=== PATIENT | female | born 1945 | race Caucasian/White ===

== ENCOUNTER 2016-08-05 11:02 | Day surgery (SDC) | payer MEDICARE ==
[2016-08-05] VITALS (10 sets, daily range): BP systolic 100–127; BP diastolic 55–829; PULSE 46–72; TEMP 98.1
[~2016-08-05] VITALS: Ht 162.7 cm; Wt 120.0 kg
[2016-08-05 12:20] LABS: HEMATOCRIT 34.7 % (37.0-47.0); HEMOGLOBIN 10.9 g/dl (12.5-16.0); MEAN CELL VOLUME 84 fl (80.0-100.0); MEAN CORPUSCULAR HEMOGLOBIN 26 pg (27.0-31.0); MEAN CORPUSCULAR HGB CONC 31 g/dl (33.0-37.0); MEAN PLATELET VOLUME 9.2 fl (7.4-10.4); PLATELET COUNT 187 K/mm3 (130-400); RED BLOOD COUNT 4.15 M/mm3 (4.10-5.30); REDCELL DISTRIBUTION WIDTH-CV 16.1 % (11.5-14.5); WHITE BLOOD COUNT 3.9 K/mm3 (4.8-10.8)
[2016-08-05] MEDS ORDERED: ZOCOR 20MG20 MG PO (12:23)
[2016-08-05 12:24] LABS: INR 1.1 (0.8-3.0); PROTHROMBIN TIME 12.5 SECONDS (9.7-12.8)
[2016-08-05] MEDS ORDERED: SYNTHROID0.05 MG/TA PO (12:24)
[2016-08-05] MEDS ORDERED: DITROPAN XL 5MG5 M1 PO (12:24)
[2016-08-05] MEDS ORDERED: NORVASC 5MG5 MG/TAB PO (12:24)
[2016-08-05] MEDS ORDERED: FOSAMAX 70MG TA70 MG PO (12:25)
[2016-08-05] MEDS ORDERED: LASIX 20MG TABL20 MG PO (12:26)
[2016-08-05] MEDS ORDERED: K-DUR 10 MEQ T10 MEQ PO (12:26)
[2016-08-05] MEDS ORDERED: VASOTEC 5MG5 MG/TAB PO (12:32)
[2016-08-05] MEDS ORDERED: COREG 3.123.125 MG/T PO (12:32)
[2016-08-05] MEDS ORDERED: VENTOLIN0.09 MG IH (12:33)
[2016-08-05 12:34] LABS: CALCIUM 8.9 mg/dL (8.4-10.2); CREATININE, serum 0.62 mg/dL (0.52-1.25); POTASSIUM 3.9 mmol/L (3.4-5.0)
[2016-08-05] MEDS ORDERED: VITAMIN B COMPL1 T16 PO (12:34)
[2016-08-05] MEDS ORDERED: LUTEIN 15 MG-0.1 SGL PO (12:34)
[2016-08-05] MEDS ORDERED: VITAMIN D32000 I1 PO (12:35)
[2016-08-05] MEDS ORDERED: FISH OIL 500 M1 EAC1 PO (12:35)
[2016-08-05] MEDS ORDERED: CALCIUM-MAGNES1 EAC1 PO (12:36)
[2016-08-05] MEDS ORDERED: MULTIPLE VITAMI1 CAP PO (12:37)
[2016-08-05] MEDS ORDERED: MERIBIN5 MG PO (12:38)
[2016-08-05] MEDS ORDERED: SLOW FE142 MG PO (12:38)
[2016-08-05] MEDS ORDERED: COLACE 100100 MG/CAP PO (12:39)
[2016-08-05] MEDS ORDERED: ESTROVEN MAX400 MCG PO (12:39)
[2016-08-05] MEDS ORDERED: ASPIRIN E.C. 8181 MG PO (12:40)
[2016-08-05] MEDS ORDERED: TYLENOL PM EXTR1 TA1 PO (12:41)
[2016-08-05] MEDS ORDERED: CORICCLDFLU PO (12:42)
[2016-08-05] MEDS ORDERED: FLONASE NASAL S16 GM NS (12:43)
[2016-08-05] MEDS ORDERED: [UNRECOGNIZED DRUG - OTHER] NS (12:45)
[2016-08-05] MEDS ORDERED: ALEVE 220MG220 MG PO (12:46)
[2016-08-05] MEDS ORDERED: COREG 6.256.25 MG/TA PO (16:53)
== END 2016-08-05 19:37 | disposition home or self-care (01) ==
LOC: COL.CAR 11:02
PROVIDERS: Internal Medicine Cardiovascular Disease
DX: I34.0 Nonrheumatic mitral (valve) insufficiency (principal); I27.2 Other secondary pulmonary hypertension; I48.91 Unspecified atrial fibrillation; I51.7 Cardiomegaly; R94.39 Abnormal result of other cardiovascular function study; I10 Essential (primary) hypertension; I44.7 Left bundle-branch block, unspecified; E78.2 Mixed hyperlipidemia; R06.00 Dyspnea, unspecified; R05 Cough; R06.2 Wheezing
CPT/HCPCS: C1760; J2250; J3010; Q9967

== ENCOUNTER 2016-12-30 08:10 | Day surgery (SDC) | payer MEDICARE ==
[2016-12-30] VITALS (7 sets, daily range): BP systolic 120–163; BP diastolic 54–83; PULSE 60–86; TEMP 96.7–98.2
[~2016-12-30] VITALS: Ht 162.6 cm; Wt 123.6 kg
[~2016-12-30 08:10] MED LIST: ALEVE 220MG220 MG PO; ASPIRIN E.C. 8181 MG PO; CALCIUM-MAGNES1 EAC1 PO; COLACE 100100 MG/CAP PO; COREG 3.123.125 MG/T PO; COREG 6.256.25 MG/TA PO; CORICCLDFLU PO; DITROPAN XL 5MG5 M1 PO; ESTROVEN MAX400 MCG PO; FISH OIL 500 M1 EAC1 PO; FLONASE NASAL S16 GM NS; FOSAMAX 70MG TA70 MG PO; K-DUR 10 MEQ T10 MEQ PO; LASIX 20MG TABL20 MG PO; LUTEIN 15 MG-0.1 SGL PO; MERIBIN5 MG PO; MULTIPLE VITAMI1 CAP PO; NORVASC 5MG5 MG/TAB PO; SLOW FE142 MG PO; SYNTHROID0.05 MG/TA PO; TYLENOL PM EXTR1 TA1 PO; VASOTEC 5MG5 MG/TAB PO; VENTOLIN0.09 MG IH; VITAMIN B COMPL1 T16 PO; VITAMIN D32000 I1 PO; ZOCOR 20MG20 MG PO; [UNRECOGNIZED DRUG - OTHER] NS
[2016-12-30 09:07] LABS: MEAN CELL VOLUME 83 fl (80.0-100.0); MEAN CORPUSCULAR HGB CONC 33 g/dl (33.0-37.0); MEAN PLATELET VOLUME 9.6 fl (7.4-10.4); PLATELET COUNT 167 K/mm3 (130-400); RED BLOOD COUNT 4.27 M/mm3 (4.10-5.30); REDCELL DISTRIBUTION WIDTH-CV 15.7 % (11.5-14.5); WHITE BLOOD COUNT 4.9 K/mm3 (4.8-10.8)
[2016-12-30 09:18] LABS: HEMATOCRIT 35.6 % (37.0-47.0); HEMOGLOBIN 11.7 g/dl (12.5-16.0); MEAN CORPUSCULAR HEMOGLOBIN 27 pg (27.0-31.0)
[2016-12-30 09:24] LABS: PROTHROMBIN TIME 11.4 SECONDS (9.7-12.8)
[2016-12-30 09:34] LABS: CREATININE, serum 0.62 mg/dL (0.52-1.25); POTASSIUM 4.2 mmol/L (3.4-5.0)
[2016-12-31 00:36] VITALS: BP 139/65; PULSE 79; TEMP 98.3
[2016-12-31 04:52] VITALS: BP 117/55; PULSE 81; TEMP 98.5
[2016-12-31 07:27] VITALS: BP 133/69; PULSE 88; TEMP 98.4
[2016-12-31] MEDS ORDERED: CEPHALEXIN500 M1 PO (10:49)
[2016-12-31] MEDS ORDERED: NORCO 325 MG-51 TAB PO (11:01)
== END 2016-12-31 12:02 | disposition home or self-care (01) ==
LOC: COL.CAR 08:10 → MEDICAL 14:39 → COL.CAR 12-31 12:02
PROVIDERS: Internal Medicine Cardiovascular Disease
DX: I42.9 Cardiomyopathy, unspecified (principal); I11.0 Hypertensive heart disease with heart failure; I50.9 Heart failure, unspecified; I34.0 Nonrheumatic mitral (valve) insufficiency; J45.909 Unspecified asthma, uncomplicated
CPT/HCPCS: OP; C1769; C1882; C1895; C1898; C1900; J0690; J2250; J3010; J7030; Q9967